=== PATIENT | female | born 1960 | race Caucasian/White ===

== ENCOUNTER 2022-04-02 08:39 | Outpatient (CLI) | payer BC | END 2022-04-02 08:40 | disposition home or self-care (01) | LOC: CSHULT 08:39 | PROVIDERS: ATTEND Obstetrics & Gynecology | DX: N63.23 Unspecified lump in the left breast, lower outer quadrant (principal) | CPT/HCPCS: 77066; G0279 ==

== ENCOUNTER 2023-04-04 09:31 | Outpatient (CLI) | payer BC | END 2023-04-04 09:32 | disposition home or self-care (01) | LOC: CSHMAMMO 09:31 | PROVIDERS: ATTEND Obstetrics & Gynecology | DX: Z12.31 Encounter for screening mammogram for malignant neoplasm of breast (principal); Z80.3 Family history of malignant neoplasm of breast | CPT/HCPCS: 77063; 77067 ==

== ENCOUNTER 2024-01-01 11:27 | Day surgery (SDC) | payer BC ==
[2023-12-31 09:16] VITALS: BMI 27.3
[2024-01-01] MEDS ORDERED: Bupivacaine PF 0.5% 30 ML VIAL ONE (12:51)
[2024-01-01] MEDS ORDERED: CEFAZOLIN 2 GM VIAL ONE (12:51)
[2024-01-01] MEDS ORDERED: Ketorolac Tromethamine 30 MG (1 mL) VIAL ONE (13:03)
[2024-01-01] MEDS ORDERED: Lidocaine 2% PF 5 ML VIAL ONE (13:03)
[2024-01-01] MEDS ORDERED: fentaNYL 50 mcg/mL 1 mL Vial ONE (13:03)
[2024-01-01] MEDS ORDERED: PROPOFOL 20 ML ONE (13:03)
[2024-01-01] MEDS ORDERED: Ondansetron PF 4 MG/2 ML Vial ONE (13:06)
[2024-01-01] MEDS ORDERED: Dexamethasone 4 mg/ml Vial ONE (13:06)
[2024-01-01] MEDS ORDERED: EPINEPHrine 1 MG/ML AMP ONE (13:22)
[2024-01-01] MEDS ORDERED: HYDROcodone/Acetaminophen 5/325 mg Tablet PO PRN (14:08)
== END 2024-01-01 15:20 | disposition home or self-care (01) ==
LOC: CSHSDC 11:27
PROVIDERS: ATTEND Surgery
PROC: 0HTU0ZZ Resection of Left Breast, Open Approach (ICD-10-PCS; principal; 2024-01-01)
PROC: 0HB5XZX Excision of Chest Skin, External Approach, Diagnostic (ICD-10-PCS; principal; 2024-01-01)
DX: D17.22 Benign lipomatous neoplasm of skin and subcutaneous tissue of left arm (principal); D24.2 Benign neoplasm of left breast; N60.22 Fibroadenosis of left breast; I10 Essential (primary) hypertension; K21.9 Gastro-esophageal reflux disease without esophagitis; Z79.899 Other long term (current) drug therapy
CPT/HCPCS: 88304; 88305; J0171; J0665; J1100; J1885; J2001; J2405; J2704; J3010

== ENCOUNTER 2024-05-25 09:03 | Outpatient (CLI) | payer BC | END 2024-05-25 09:04 | disposition home or self-care (01) | LOC: CSHMAMMO 09:03 | PROVIDERS: ATTEND Surgery | DX: N63.23 Unspecified lump in the left breast, lower outer quadrant (principal) | CPT/HCPCS: 77066; G0279 ==